=== PATIENT | female | born 1995 | race Caucasian/White ===

== ENCOUNTER 2018-03-27 11:32 | Outpatient (REF) | payer OTHER, SELFPAY ==
--- NOTE | 2018-03-27 08:30 | PAPFT_PTH ---
PATIENT: MP FINN LOC: [facility] U#:[id number] AGE/SX: 22/F ROOM: RE03/27/[address]: Meredith Arriaga : 1995 BED: DIS: 03/27/2018 SPEC #: [id number] RECD: 03/27/18 12:58 STATUS: LULU REMony #: [id number] MARISELA: 03/27/18 08:[address]: Meredith Arriaga DEPT: [facility] Cytology RECD BY: Collette Willson Tissues: 1 - CX/ENDOCX FOR PAP SMEARS Procedures: PAP THIN PREP/UVM Screening Comments: [id number] (CHLAMYDIA/GC)
[2018-03-28 13:27] LABS: Chlamydia Result Negative; GC Result Negative; Specimen Description SEE COMMENTS
== END 2018-03-27 11:52 ==
LOC: NCHCN 11:32
PROVIDERS: PCP Family Medicine; Visit Provider Family Medicine
DX: Z00.00 Encounter for general adult medical examination without abnormal findings (principal); Z12.4 Encounter for screening for malignant neoplasm of cervix; Z11.51 Encounter for screening for human papillomavirus (HPV); Z11.3 Encounter for screening for infections with a predominantly sexual mode of transmission
CPT/HCPCS: 87491; 87591; 88142

== ENCOUNTER 2018-05-29 15:36 | Outpatient (CLI) | payer OTHER, SELFPAY ==
[2018-05-29 16:57] LABS: TSH (W/Ref FT4) 0.95 uIU/mL (0.358-3.74)
[2018-05-29 18:05] LABS: HCG Quant, Pregnancy < 1 mIU/mL (1-3)
[2018-05-31 11:33] LABS: FSH 4.1 mIU/ml; Prolactin 11.7 ng/ml
== END 2018-05-29 15:56 ==
PROVIDERS: PCP Family Medicine; Visit Provider Nurse Practitioner Women's Health
DX: N91.1 Secondary amenorrhea (principal)
CPT/HCPCS: 36415; 83001; 84146; 84443; 84702

== ENCOUNTER 2019-07-16 07:07 | Outpatient (CLI) | payer OTHER, SELFPAY ==
--- NOTE | 2019-07-16 08:00 | DI.US_ITS ---
EXAM: US PELVIS TRANSVAGINAL CLINICAL HISTORY: L sided pelvic pain, IUD in place,R10.2,Z30.431. TECHNIQUE: Transabdominal and transvaginal pelvic ultrasound was performed using standard protocol. COMPARISON: US PELVIS TRANSVAG from 09/17/2017 US PELVIS TRANSVAG from 09/17/2017 FINDINGS: KIDNEYS: Kidneys are symmetric in size. No evidence of renal calculi. No evidence of hydronephrosis. No renal mass or cyst identified. UTERUS: Position: Retroverted. Size: 5.4 x 6.3 x 4.2 cm Endometrium: 9 millimeters . An IUD is seen within the endometrium and appears appropriately position ed. Myometrium: Unremarkable. Cervix: Unremarkable. OVARIES: Right: 3.3 x 1.9 x 1.9 cm Cyst or mass: None. Left: 2.7 x 1.6 x 1.3 cm Cyst or mass: None. DOPPLER: Color: Symmetric and uniform flow to both ovaries. No hyperemia. Duplex: Normal ovarian arterial waveforms visualized. CUL-DE-SAC: Free fluid: Small amount of fluid is seen at the fundus of the uterus.. Other: None. IMPRESSION: 1. Normal sonographic appearance of the kidneys. 2. Normal-appearing uterus with IUD within the endometrial stripe. 3. Unremarkable bilateral ovaries. DATA REPOSITORY:
== END 2019-07-16 07:27 ==
PROVIDERS: PCP Family Medicine; Visit Provider Nurse Practitioner Women's Health
DX: R10.2 Pelvic and perineal pain (principal); Z30.431 Encounter for routine checking of intrauterine contraceptive device
CPT/HCPCS: 76830; 76856

== ENCOUNTER 2019-11-18 01:42 | Outpatient (CLI) | payer OTHER, SELFPAY ==
--- NOTE | 2019-11-18 07:00 | DI.US_ITS ---
EXAM: US PELVIS TRANSVAGINAL CLINICAL HISTORY: L sided pelvic pain, ? ovarian cyst,R10.2 TECHNIQUE: Transabdominal and transvaginal imaging was performed using standard protocol. COMPARISON: US US PELVIS TRANSVAGINAL from 07/16/2019 FINDINGS: UTERUS: Anteverted. 6.3 x 2.1 x 4.1 cm Endometrium: Normal, 2 millimeters in thickness. The IUD is no longer seen. Myometrium: Unremarkable. Cervix: Unremarkable. OVARIES: Right: Cyst or mass: None. Left: Cyst or mass: None. DOPPLER: Color: Symmetric and uniform flow to both ovaries. No hyperemia. Duplex: Normal ovarian arterial waveforms visualized. CUL-DE-SAC: Free fluid: None. IMPRESSION: 1. Normal-appearing uterus with endometrial stripe within normal limits. 2. Unremarkable bilateral ovaries. DATA REPOSITORY:
== END 2019-11-18 02:02 ==
PROVIDERS: PCP Family Medicine; Visit Provider Nurse Practitioner Women's Health
DX: R10.2 Pelvic and perineal pain (principal)
CPT/HCPCS: 76830; 76856